=== PATIENT | male | born 1955 | race Caucasian/White ===

== ENCOUNTER 2021-05-19 14:32 | Inpatient (IN) | payer BC, MEDICARE ==
[~2021-05-19] VITALS: Ht 185.4 cm; Wt 98.6 kg
[2021-05-19 14:50] LABS: BASO # 0.1 (0.0-0.2); BASO % 0.9 % (0.0-2.0); EOS # 0.3 (0.0-0.7); EOS % 2.7 % (0-4.0); GRAN # 7.5 (1.4-6.5); GRAN % 74.3 % (42.2-75.2); HEMATOCRIT 44.2 % (42.0-52.0); HEMOGLOBIN 14.5 g/dl (13.5-18.0); LYMPH # 1.6 (1.2-3.4); LYMPH % 15.9 % (20.0-51.0); MEAN CELL VOLUME 93 fl (80.0-100.0); MEAN CORPUSCULAR HEMOGLOBIN 31 pg (27.0-31.0); MEAN CORPUSCULAR HGB CONC 33 g/dl (33.0-37.0); MEAN PLATELET VOLUME 10.4 fl (7.4-10.4); MONO # 0.6 (0.1-0.6); MONO % 5.8 % (1.7-9.3); PLATELET COUNT 259 K/mm3 (130-400); RED BLOOD COUNT 4.73 M/mm3 (4.20-5.60); REDCELL DISTRIBUTION WIDTH-CV 13.5 % (11.5-14.5)
[2021-05-19 14:58] LABS: INR 1.1 (0.8-3.0); PROTHROMBIN TIME 12.5 SECONDS (9.7-12.8)
[2021-05-19 15:00] LABS: ALANINE AMINOTRANSFERASE 29 U/L (4-49); ALBUMIN 3.6 gm/dL (3.5-5.0); ALKALINE PHOSPHATASE 77 U/L (50-136); ANION GAP 4 mmol/L (7-16); AST,SGOT 29 U/L (15-37); BILIRUBIN,TOTAL 0.2 mg/dL (0.0-1.0); BLOOD UREA NITROGEN 17 mg/dL (9-20); CARBON DIOXIDE 20 mmol/L (22-30); CHLORIDE 117 mmol/L (98-107); CREATININE, serum 0.56 (0.66-1.25); GLUCOSE 101 mg/dL (74-106); POTASSIUM 3.4 mmol/L (3.4-5.0); SODIUM 142 mmol/L (137-145); TOTAL PROTEIN 6.5 gm/dL (6.4-8.2)
[2021-05-19 15:12] LABS: TROPONIN-I < 0.012 ng/mL (0.000-0.035)
[2021-05-19 17:55] LABS: COLLECTION METHOD RANDOM VOIDED
[2021-05-19 18:11] LABS: MUCOUS Present /lpf; PH 6 (5-8); SQUAMOUS EPITHELIAL None Seen /hpf; URINE APPEARANCE Clear; URINE BACTERIA None Seen /hpf; URINE BILIRUBIN Negative (NEGATIVE); URINE BLOOD Negative (NEGATIVE); URINE COLOR Yellow; URINE GLUCOSE Negative (NEGATIVE); URINE KETONE Negative (NEGATIVE); URINE LEUKOCYTE ESTERASE Negative (NEGATIVE); URINE NITRATE Negative (NEGATIVE); URINE PROTEIN(semi-quant) Negative (NEGATIVE); URINE RBC 0-2 /hpf; URINE UROBILINOGEN Negative (NEGATIVE)
--- NOTE | 2021-05-19 18:20 | NUR ---
Pt arrives to medical unit rm [id number] from ED via cart, awake and alert, oriented x 4, accompanied by . Pt denies needs at this time, oriented to room and informed of oncoming shift coming in soon. Call light in reach. Bed alarm on.
[2021-05-19 19:54] VITALS: BP 156/92; PULSE 65; TEMP 98.1
--- NOTE | 2021-05-19 21:46 | NUR ---
Pt has been doing ok but right side is pretty weak. Bp is elevated. pt is currently on seizure precaution and neuro q4hr.
[2021-05-20 00:19] VITALS: BP 153/84; PULSE 67; TEMP 98.1
[2021-05-20 04:23] VITALS: BP 130/74; PULSE 64; TEMP 98.2
[2021-05-20 06:47] LABS: CHOLESTEROL RISK RATIO 7.4
[2021-05-20 08:00] VITALS: BP 134/87; PULSE 57; TEMP 98.5
--- NOTE | 2021-05-20 10:43 | NUR ---
PT RESTING IN RECLINER, APPEARS VERY DROWSY AND KEEPS FALLING ASLEEP. MORNING MEDICATIONS GIVEN. IV PATENT WITH NS AND VANCOMYCIN RUNNING. 2+ EDEMA NOTED TO BLE. PT HAS NO COMPLAINTS AT THIS TIME. CALL LIGHT WITHIN REACH. WILL CONTINUE TO MONITOR.
[2021-05-20] MEDS ORDERED: BUSPAR 30MG30 MG/TAB PO (10:55)
[2021-05-20] MEDS ORDERED: LOFIBRA160 MG PO (10:56)
[2021-05-20] MEDS ORDERED: WELLBUTRIN XL300 M1 PO (10:56)
[2021-05-20] MEDS ORDERED: CELEBREX 200MG200 MG PO (10:56)
[2021-05-20] MEDS ORDERED: PRAVACHOL10 MG PO (10:56)
[2021-05-20] MEDS ORDERED: CYMBALTA 60MG60 MG PO (10:57)
--- NOTE | 2021-05-20 10:58 | NUR ---
First visit from the vice president corporate communications. No needs right now.
--- NOTE | 2021-05-20 11:12 | NUR ---
SW attended clinical rounds. The patient is to have an MRI of his brain today. SW then followed up with the patient and his , Mira ([id number]#[phone]), to discuss discharge plan. The patient lives outside of [place] with his . He reports independence with ADLs and does not have any assistive devices. He has a CPAP. The patient's PCP is Dr. Danilo Aviles and he receives his medications from [facility]. He reports no difficulties obtaining his meds. The patient does not have a DPOA-HC in EMR, but he states that he does have one completed and that it designates his . The patient plans to return home with his upon discharge. PT/OT have been ordered. SW to continue to follow. *Discharge plan: home with *
--- NOTE | 2021-05-20 11:16 | NUR ---
PT RESTING IN BED. MORNING MEDICATIONS GIVEN. RIGHT SIDED LEG WEAKNESS, PT REPORTS IT HAS IMPROVED. HAND LEGAL ANALYST UNEQUAL, R SIDED WEAKNESS. PT DENIES ANY PAIN OR ANY NEEDS A THIS TIME. CALL LIGHT WITHIN REACH. WILL CONTINUE TO MONITOR.
[2021-05-20 11:32] VITALS: BP 154/120; BP 154/98; PULSE 64; TEMP 98.4
[2021-05-20] MEDS ORDERED: FLAXSEED OIL1000 MG PO (11:48)
[2021-05-20] MEDS ORDERED: MULTIVITAMIN PO (11:48)
[2021-05-20] MEDS ORDERED: FIBER PO (11:50)
[2021-05-20 16:00] VITALS: BP 150/90; PULSE 73; TEMP 98.9
--- NOTE | 2021-05-20 17:22 | NUR ---
PT OFF THE UNIT FOR MRI PROCEDURE.
[2021-05-20 19:17] VITALS: BP 146/94; TEMP 98.3
--- NOTE | 2021-05-20 21:55 | NUR ---
Pt seems to be anxious and rated chest pain 6/10. Narco was given. Will continue to monitor.
--- NOTE | 2021-05-20 22:36 | NUR ---
pt seems in good spirit. Pain rated 0/10. MD called for MRI result. Will continue to monitor.
[2021-05-21] VITALS: BP 124/78; PULSE 73; TEMP 98.1
[2021-05-21 04:00] VITALS: BP 120/98; PULSE 70; TEMP 97.9
--- NOTE | 2021-05-21 07:05 | NUR ---
Bedside shift report complete. Pt resting in bed, alert. Pt. denies needs at this time. Bed alarm on, call light in reach for safety.
[2021-05-21 07:06] LABS: BASO # 0.1 (0.0-0.2); BASO % 0.8 % (0.0-2.0); EOS # 0.3 (0.0-0.7); EOS % 2.9 % (0-4.0); GRAN # 6.4 (1.4-6.5); GRAN % 65.6 % (42.2-75.2); HEMATOCRIT 50.2 % (42.0-52.0); HEMOGLOBIN 16.3 g/dl (13.5-18.0); LYMPH % 20.9 % (20.0-51.0); MEAN CELL VOLUME 94 fl (80.0-100.0); MEAN CORPUSCULAR HEMOGLOBIN 31 pg (27.0-31.0); MEAN CORPUSCULAR HGB CONC 33 g/dl (33.0-37.0); MEAN PLATELET VOLUME 10.5 fl (7.4-10.4); MONO # 0.9 (0.1-0.6); MONO % 9.4 % (1.7-9.3); PLATELET COUNT 272 K/mm3 (130-400); RED BLOOD COUNT 5.35 M/mm3 (4.20-5.60); REDCELL DISTRIBUTION WIDTH-CV 13.6 % (11.5-14.5)
[2021-05-21 07:08] LABS: CALCIUM 9.4 mg/dL (8.4-10.2); CREATININE, serum 0.86 (0.66-1.25); POTASSIUM 4.1 mmol/L (3.4-5.0)
--- NOTE | 2021-05-21 07:26 | NUR ---
Bedside shift report complete. Pt resting in bed w/ CPAP on. Call light in reach.
[2021-05-21 07:51] VITALS: BP 155/96; PULSE 71; TEMP 97.6
[2021-05-21] MEDS ORDERED: ASPIRIN E.C. 8181 MG PO (08:12)
[2021-05-21] MEDS ORDERED: LIPITOR 40MG TA40 MG PO (08:12)
[2021-05-21] MEDS ORDERED: HCTZ 25MG TAB25 MG PO (09:51)
--- NOTE | 2021-05-21 09:59 | NUR ---
ALISSA attended clinical rounds. The patient's , Mira, at bedside. The patient had an acute CVA. The patient is ready to d/c today. PT/OT are recommending outpatient PT/OT and a FWW. SW followed up with the patient and his and reviewed therapy's recommendation. The patient and his are in agreement to outpatient therapy and chose [facility] on [address]. The patient reports that he gets his CPAP from [facility] and would like to go ahead and get the FWW from [facility]. The patient and his report that they can filler picker the FWW from [facility] on their way home from the hospital today. ALISSA contacted and faxed and emailed the FWW to Carmen at [facility]. ALISSA notified [facility] that the patient and his will would be picking up the FWW. ALISSA contacted [facility] and secured the patient an outpatient PT appointment on Wednesday, 05/30, at 1245 and OT on 05/30 at 1400. ALISSA notified the community outreach worker of the appointments. ALISSA faxed the patient's d/c orders to [facility]. The patient is to discharge back home with this today, 05/21, with outpatient PT/OT at [facility]. No additional needs at this time.
--- NOTE | 2021-05-21 11:13 | NUR ---
Pt. to be discharged home. Stroke information reviewed in charting. Plan for pt. to be discharged on aspirin. Pt. to be discharged on statin. TULIO Braden notified pt. is not on an anti-throbolytic medication. TULIO Braden reports plan is for pt. to follow up with neurology to see if pt. will be discharged on plavix.
--- NOTE | 2021-05-21 11:45 | NUR ---
Pt. discharged home. IV removed, site c/d/i. Tele removed. Pt. instructed on s/s stroke. All discharge education and instructions provided to patient. at bedside. Pt. left the unit via wheelchair w/ tech Chanda.
== END 2021-05-21 11:45 | disposition home or self-care (01) | DRG 64 ==
LOC: COL.ER 14:32 → MEDICAL 17:05 → COL.ER 17:05 → MEDICAL 05-21 11:45
PROVIDERS: Physician Assistant; ADMIT Internal Medicine
DX: I63.89 Other cerebral infarction (principal); J96.01 Acute respiratory failure with hypoxia; E87.2 Acidosis; G81.91 Hemiplegia, unspecified affecting right dominant side; E78.5 Hyperlipidemia, unspecified; R29.702 NIHSS score 2; I10 Essential (primary) hypertension; G47.33 Obstructive sleep apnea (adult) (pediatric); F32.9 Major depressive disorder, single episode, unspecified; Z20.822 Contact with and (suspected) exposure to COVID-19; M19.90 Unspecified osteoarthritis, unspecified site; Z96.651 Presence of right artificial knee joint; Z90.49 Acquired absence of other specified parts of digestive tract; Z87.891 Personal history of nicotine dependence; Z87.820 Personal history of traumatic brain injury
CPT/HCPCS: 99232-AI; J1650; J7030; J7042; Q9967

== ENCOUNTER 2021-07-09 11:15 | Outpatient (RCR) | payer BC ==
[~2021-07-09 11:15] MED LIST: ASPIRIN E.C. 8181 MG PO; BUSPAR 30MG30 MG/TAB PO; CELEBREX 200MG200 MG PO; CYMBALTA 60MG60 MG PO; FIBER PO; FLAXSEED OIL1000 MG PO; HCTZ 25MG TAB25 MG PO; LIPITOR 40MG TA40 MG PO; LOFIBRA160 MG PO; MULTIVITAMIN PO; PRAVACHOL10 MG PO; WELLBUTRIN XL300 M1 PO
== END 2021-07-09 12:27 | disposition home or self-care (01) ==
LOC: MKS.ESL.PT 11:15
DX: I63.9 Cerebral infarction, unspecified (principal)